=== PATIENT | male | born 1980 | race Caucasian/White ===

== ENCOUNTER 2019-04-28 18:25 | Emergency (ER) | payer OTHER ==
[2019-04-28 18:32] VITALS: BP 186/118; PULSE 80; RESP 18; TEMP 97.9
[2019-04-28] MEDS ORDERED: HYDROcodone/APAP 5-325MG 1 EACH TAB PO STA (18:35)
[2019-04-28] MEDS ORDERED: CEPHALEXIN 500 MG CAP PO STA (19:21)
--- NOTE | 2019-04-28 19:21 | XR ---
EXAMINATION TYPE: XR hand complete RT DATE OF EXAM: 04/28/2019 COMPARISON: NONE HISTORY: Pain TECHNIQUE: Three views are submitted. FINDINGS: There is a comminuted fracture involving the tuft of the distal phalanx third digit. There is displac ement. IMPRESSION: 1. Displaced comminuted fracture tuft distal phalanx third digit.
[2019-04-28] MEDS ORDERED: LIDOCAINE 1% INJ 10MG/ML (20 ML MDV) SQ ONE (19:38)
[2019-04-28] MEDS ORDERED: ACET/COD 300 MG/30 MG STARTER PACK 6 TAB BTL PO STA (20:24)
[2019-04-28] MEDS ORDERED: CEPHALEXIN 500MG STARTER PACK 4 CAP BTL PO STA (20:25)
--- NOTE | 2019-04-28 20:26 | ED ---
General Adult HPI - General Chief complaint: Extremity Injury, Upper Stated complaint: [facility] - crushed finger Time Seen by Provider: 04/28/19 18:35 Source: patient Mode of arrival: ambulatory Limitations: no limitations - History of Present Illness Initial comments: Patient is a 38-year-old male presenting to the emergency department with a chief complaint of finger pain. Patient reports he was at work when he injured his middle finger of the right hand. She reports injury is located at the distal end with partial or full removal of the nail. Patient reports a throbbing pain that appears to be exacerbated with any touching at the site. Patient denies any numbness or tingling. Patient reports his tetanus is up-to-date. Patient denies taking medication to alleviate the symptoms. Patient has full range of motion of the middle finger with some active bleeding at this time. - Related Data Previous Rx's Medication Instructions Recorded Cephalexin [Keflex] 500 mg PO Q6HR #40 cap 04/28/19 Allergies Allergy/AdvReac Type Severity Reaction Status Date / Time No Known Allergies Allergy Verified 04/28/19 18:29 Review of Systems ROS Statement: Those systems with pertinent positive or pertinent negative responses have been documented in the HPI. ROS Other: All systems not noted in ROS Statement are negative. Past Medical History Past Medical History: Hypertension History of Any Multi-Drug Resistant Organisms: None Reported Past Surgical History: No Surgical Hx Reported Past Psychological History: Depression Smoking Status: Never smoker Past Alcohol Use History: Occasional Past Drug Use History: None Reported General Exam Limitations: no limitations General appearance: alert, in no apparent distress Head exam: Present: atraumatic, normocephalic, normal inspection Eye exam: Present: normal appearance Pupils: Present: normal accommodation ENT exam: Present: normal exam, mucous membranes moist Neck exam: Present: normal inspection Respiratory exam: Present: normal lung sounds bilaterally Cardiovascular Exam: Present: regular rate, normal rhythm, normal heart sounds Extremities exam: Present: full ROM, tenderness (Tenderness at the site of injury), normal capillary refill (Unable to check capillary refill on medical right finger.), other (+2 ulnar and radial pulses bilaterally.). Absent: normal inspection (Trauma to the right middle finger. Laceration measuring approximately 1.5 cm. Nail avulsion. Laceration to the nailbed.) Back exam: Present: normal inspection, full ROM Neurological exam: Present: alert, oriented X3 Psychiatric exam: Present: normal affect, normal mood Skin exam: Present: warm, dry, intact, normal color Course Vital Signs 04/28/19 18:30 Temperature 97.9 F Pulse Rate 80 Respiratory 18 Rate Blood Pressure 186/118 O2 Sat by Pulse 99 Oximetry Procedures - Laceration Laceration #1 Consent Obtained: verbal consent Indication: laceration Site: other (Finger) Size (cm): 2 Description: avulsion, irregular, clean Depth: simple, single layer Sedation/Analgesia: none Anesthetic Used: lidocaine 1% Anesthesia Technique: local infiltration, nerve block Amount (mls): 5 Pre-repair: irrigated extensively Type of Sutures: nylon Size of Sutures: 4-0 Number of Sutures: 5 Technique: simple, interrupted Complications: bleeding Patient Tolerated Procedure: well, no complications - Orthopedic Splinting/Casting Injury #1 Side: right Upper Extremity Injury Location: finger (Middle finger right) Upper Extremity Immobilizer: finger (other) Medical Decision Making - Medical Decision Making Patient is a 38-year-old male presenting to emergency Department with a chief complaint of right finger injury. On exam patient has a laceration on the distal end of the right middle finger. Some active bleeding. Nail avulsion with a laceration to the nailbed. X-ray shows a distal phalanx tuft fracture, commuted. Patient given analgesia and antibiotics. Laceration site repaired with 5 sutures. Finger splint applied. Patient prescribed Keflex. Patient given a Tylenol 3 starter pack. Patient advised about the possible side effects of the medication not to drive or operate heavy machinery when taking the. Strict return parameters were thoroughly discussed the patient was understanding and agreeable. Patient advised to follow-up with orthopedics. Case discussed with physician. Disposition Clinical Impression: Closed fracture of tuft of distal phalanx of finger, Nail avulsion, Laceration of nail bed of finger Disposition: HOME SELF-CARE Condition: Stable Instructions (If sedation given, give patient instructions): Hand Fracture (ED) Additional Instructions: Please take prescribed medication as directed. Please follow-up with loan operations specialist. Please return to emergency department if symptoms worsen. Prescriptions: Cephalexin [Keflex] 500 mg PO Q6HR #40 cap Is patient prescribed a controlled substance at d/c from ED?: No Referrals: Saturnino Galvan MD [Primary Care Provider] - 1-2 days Kalen Parra MD [STAFF PHYSICIAN] - 1-2 days Time of Disposition: 20:26
== END 2019-04-28 20:48 | disposition home or self-care (01) ==
LOC: EC 18:25
DX: S62.632B Displaced fracture of distal phalanx of right middle finger, initial encounter for open fracture (principal); W31.89XA Contact with other specified machinery, initial encounter; Y92.69 Other specified industrial and construction area as the place of occurrence of the external cause; Y99.0 Civilian activity done for income or pay
CPT/HCPCS: 73130; 99283; 11760; 64450; J2001